=== PATIENT | female | born 1925 | race Caucasian/White ===

== ENCOUNTER 2016-11-06 12:10 | Observation (INO) | payer MEDICARE, BC ==
--- NOTE | 2016-11-06 14:50 | ED ---
SOB HPI - General Source: patient, family Mode of arrival: wheelchair Limitations: no limitations <Eran Larkin - Last Filed: 11/06/16 17:14> <Sherman Otto - Last Filed: 11/06/16 17:57> - General Chief Complaint: Shortness of Breath Stated Complaint: fluid in lungs--sent by dr Mcclure Time Seen by Provider: 11/06/16 14:16 - History of Present Illness Initial Comments: 89-year-old female patient presented emergency department today for complaints of left sided rib pain. Patient was diagnosed with pneumonia and given a prescription for Cefdinir about 10 days ago. Patient was not improving so she returned to her primary care physician today where she had a repeat chest x- ray. Patient's daughter states that the chest x-ray showed worsening of the pneumonia and some fluid on her lungs. Patient states that this left-sided rib pain started about a week ago, has been worsening, states any movement, deep breathing, or coughing exacerbates the pain. Patient denies any fever or chills. Patient states she does become short of breath, and sweaty when she walks through the house. Patient denies any swelling, chest pain, dizziness, abdominal pain, nausea, vomiting, has patient, diarrhea, hematuria, dysuria, urinary urgency, urinary frequency. Patient states that she has somewhat weak. Patient states she has had small amounts of yellow sputum production. (Eran Larkin) - Related Data Home Medications Medication Instructions Recorded Confirmed Amiodarone [Cordarone] 200 mg PO DAILY 11/06/16 11/06/16 Cefdinir 300 mg PO BID 11/06/16 11/06/16 Multivits-Min/Iron/FA/Lutein 1 tab PO DAILY 11/06/16 11/06/16 [Centrum Silver Women Tablet] Omeprazole 20 mg PO DAILY 11/06/16 11/06/16 Warfarin [Coumadin] 2.5 mg PO HS 11/06/16 11/06/16 Allergies Allergy/AdvReac Type Severity Reaction Status Date / Time azithromycin AdvReac Unknown Verified 11/06/16 14:08 ciprofloxacin [From Cipro] AdvReac Unknown Verified 11/06/16 12:49 dabigatran etexilate AdvReac Unknown Verified 11/06/16 14:08 [From Pradaxa] levofloxacin [From Levaquin] AdvReac Unknown Verified 11/06/16 14:08 moxifloxacin [From Avelox] AdvReac Unknown Verified 11/06/16 14:08 oxybutynin [From Oxytrol] AdvReac Unknown Verified 11/06/16 14:08 ANTIDEPRESSANTS AdvReac Unknown Uncoded 11/06/16 14:08 Review of Systems ROS Other: All systems not noted in ROS Statement are negative. <Eran Larkin - Last Filed: 11/06/16 17:14> ROS Other: All systems not noted in ROS Statement are negative. <Sherman Otto - Last Filed: 11/06/16 17:57> ROS Statement: Those systems with pertinent positive or pertinent negative responses have been documented in the HPI. Past Medical History Past Medical History: Atrial Fibrillation, GERD/Reflux, Pneumonia History of Any Multi-Drug Resistant Organisms: None Reported Additional Past Surgical History / Comment(s): vein ligation Past Psychological History: No Psychological Hx Reported Smoking Status: Never smoker Past Alcohol Use History: None Reported Past Drug Use History: None Reported <Eran Larkin - Last Filed: 11/06/16 17:14> General Exam Limitations: no limitations General appearance: alert, in no apparent distress Head exam: Present: atraumatic, normocephalic, normal inspection Eye exam: Present: normal appearance, PERRL, EOMI. Absent: scleral icterus, conjunctival injection, periorbital swelling ENT exam: Present: normal exam, mucous membranes moist Neck exam: Present: normal inspection. Absent: tenderness, meningismus, lymphadenopathy Respiratory exam: Present: rales (Bilateral bases), chest wall tenderness (Over the left anterior ribs). Absent: normal lung sounds bilaterally, respiratory distress, wheezes, rhonchi, stridor Cardiovascular Exam: Present: regular rate, normal rhythm, normal heart sounds. Absent: systolic murmur, diastolic murmur, rubs, gallop, clicks GI/Abdominal exam: Present: soft, normal bowel sounds. Absent: distended, tenderness, guarding, rebound, rigid Extremities exam: Present: normal inspection, full ROM, normal capillary refill. Absent: tenderness, pedal edema, joint swelling, calf tenderness Back exam: Present: normal inspection Neurological exam: Present: alert, oriented X3, CN II-XII intact Psychiatric exam: Present: normal affect, normal mood Skin exam: Present: warm, dry, intact, normal color. Absent: rash <Eran Larkin - Last Filed: 11/06/16 17:14> General appearance: alert, in no apparent distress Head exam: Present: atraumatic, normocephalic, normal inspection Eye exam: Present: normal appearance, PERRL, EOMI. Absent: scleral icterus, conjunctival injection, periorbital swelling ENT exam: Present: normal exam, mucous membranes moist Neck exam: Present: normal inspection. Absent: tenderness, meningismus, lymphadenopathy Respiratory exam: Present: normal lung sounds bilaterally, wheezes. Absent: respiratory distress, rales, rhonchi, stridor Cardiovascular Exam: Present: regular rate, normal rhythm, normal heart sounds. Absent: systolic murmur, diastolic murmur, rubs, gallop, clicks GI/Abdominal exam: Present: soft, normal bowel sounds. Absent: distended, tenderness, guarding, rebound, rigid Extremities exam: Present: normal inspection, full ROM, normal capillary refill. Absent: tenderness, pedal edema, joint swelling, calf tenderness Back exam: Present: normal inspection Neurological exam: Present: alert, oriented X3, CN II-XII intact Psychiatric exam: Present: normal affect, normal mood Skin exam: Present: warm, dry, intact, normal color. Absent: rash <Sherman Otto - Last Filed: 11/06/16 17:57> Course <Eran Larkin - Last Filed: 11/06/16 17:14> <Shermna Otto - Last Filed: 11/06/16 17:57> Vital Signs 11/06/16 11/06/16 11/06/16 12:42 14:42 15:17 Temperature 98.2 F Pulse Rate 59 L 60 Respiratory 16 16 18 Rate Blood Pressure 164/75 183/81 O2 Sat by Pulse 95 97 Oximetry 11/06/16 17:51 Temperature Pulse Rate 59 L Respiratory 18 Rate Blood Pressure 193/83 O2 Sat by Pulse 97 Oximetry - Reevaluation(s) Reevaluation #1: 11/06/16 17:57 Patient showing no improvement with breathing treatment (Sherman Otto) Medical Decision Making - Lab Data Result diagrams: 11/06/16 14:05 11/06/16 14:05 - Radiology Data Radiology results: report reviewed <Eran Larkin - Last Filed: 11/06/16 17:14> - Lab Data Result diagrams: 11/06/16 14:05 11/06/16 14:05 <Sherman Otto - Last Filed: 11/06/16 17:57> - Medical Decision Making 89-year-old female patient presents to emergency department today for complaints of shortness of breath and continued cough despite a 10 day course of cefdinir given to her by her primary care physician. Chest x-ray showed no acute pneumonia, but did reveal some atelectasis versus scarring in the bases. CTA of the chest revealed no pulmonary embolism, but did show some apical scarring as well as some atelectasis at the lung bases. Patient will be admitted for exacerbation of COPD. She will be placed on IV steroids, as well as given breathing treatments every 6 hours. Patient also having some left sided rib/chest wall pain. Discussed splinting and incentive spirometry use with the patient. Case discussed with Cassius Thompson (Eran Larkin) 89 to the ER for evaluation of shortness of breath, positive COPD exacerbation. Patient, patient will be admitted for IV Steroids and breathing tx around the clock (Sherman Otto) - Lab Data Lab Results 11/06/16 11/06/16 11/06/16 Range/Units 14:05 14:05 14:05 WBC 8.7 (3.8-10.6) k/uL RBC 4.54 (3.80-5.40) m/uL Hgb 13.4 (11.4-16.0) gm/dL Hct 40.9 (34.0-46.0) % MCV 90.1 (80.0-100.0) fL MCH 29.5 (25.0-35.0) pg MCHC 32.7 (31.0-37.0) g/dL RDW 13.8 (11.5-15.5) % Plt Count 178 (150-450) k/uL Neutrophils % 78 % Lymphocytes % 16 % Monocytes % 4 % Eosinophils % 1 % Basophils % 0 % Neutrophils # 6.8 (1.3-7.7) k/uL Lymphocytes # 1.3 (1.0-4.8) k/uL Monocytes # 0.4 (0-1.0) k/uL Eosinophils # 0.0 (0-0.7) k/uL Basophils # 0.0 (0-0.2) k/uL PT (9.0-12.0) sec INR (<1.1) APTT (22.0-30.0) sec Sodium 141 (137-145) mmol/L Potassium 4.4 (3.5-5.1) mmol/L Chloride 106 (98-107) mmol/L Carbon Dioxide 25 (22-30) mmol/L Anion Gap 10 mmol/L BUN 17 (7-17) mg/dL Creatinine 0.81 (0.52-1.04) mg/dL Est GFR (MDRD) Af Amer >60 (>60 ml/min/1.73 sqM) Est GFR (MDRD) Non-Af >60 (>60 ml/min/1.73 sqM) Glucose 89 (74-99) mg/dL Calcium 8.9 (8.4-10.2) mg/dL Total Bilirubin 0.8 (0.2-1.3) mg/dL AST 44 H (14-36) U/L ALT 84 H (9-52) U/L Alkaline Phosphatase 84 (38-126) U/L Total Creatine Kinase 50 (30-135) U/L CK-MB (CK-2) 1.0 (0.0-2.4) ng/mL CK-MB (CK-2) Rel Index 2.0 Troponin I <0.012 (0.000-0.034) ng/mL NT-Pro-B Natriuret Pep pg/mL Total Protein 6.1 L (6.3-8.2) g/dL Albumin 3.3 L (3.5-5.0) g/dL 11/06/16 11/06/16 Range/Units 14:05 14:05 WBC (3.8-10.6) k/uL RBC (3.80-5.40) m/uL Hgb (11.4-16.0) gm/dL Hct (34.0-46.0) % MCV (80.0-100.0) fL MCH (25.0-35.0) pg MCHC (31.0-37.0) g/dL RDW (11.5-15.5) % Plt Count (150-450) k/uL Neutrophils % % Lymphocytes % % Monocytes % % Eosinophils % % Basophils % % Neutrophils # (1.3-7.7) k/uL Lymphocytes # (1.0-4.8) k/uL Monocytes # (0-1.0) k/uL Eosinophils # (0-0.7) k/uL Basophils # (0-0.2) k/uL PT 15.0 H (9.0-12.0) sec INR 1.5 (<1.1) APTT 26.3 (22.0-30.0) sec Sodium (137-145) mmol/L Potassium (3.5-5.1) mmol/L Chloride (98-107) mmol/L Carbon Dioxide (22-30) mmol/L Anion Gap mmol/L BUN (7-17) mg/dL Creatinine (0.52-1.04) mg/dL Est GFR (MDRD) Af Amer (>60 ml/min/1.73 sqM) Est GFR (MDRD) Non-Af (>60 ml/min/1.73 sqM) Glucose (74-99) mg/dL Calcium (8.4-10.2) mg/dL Total Bilirubin (0.2-1.3) mg/dL AST (14-36) U/L ALT (9-52) U/L Alkaline Phosphatase (38-126) U/L Total Creatine Kinase (30-135) U/L CK-MB (CK-2) (0.0-2.4) ng/mL CK-MB (CK-2) Rel Index Troponin I (0.000-0.034) ng/mL NT-Pro-B Natriuret Pep 340 pg/mL Total Protein (6.3-8.2) g/dL Albumin (3.5-5.0) g/dL - Radiology Data Two-view chest x-ray impression by Dr. Butler reveals no acute infiltrate. Linear changes at the right lung base just of scar atelectasis. 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 CTA of the chest shows apical scarring present bilaterally. There is atelectatic changes present at the lung bases. Impression by Dr. Rose reveals a negative pulmonary embolism exam, and mild cardiomegaly, hiatal hernia. (Eran Larkin) Critical Care Time Critical Care Time: Yes Total Critical Care Time: 31 <Sherman Otto - Last Filed: 11/06/16 17:57> Disposition Decision to Admit Reason: Admit from EC Decision Date: 11/06/16 Decision Time: 17:09 <Eran Larkin - Last Filed: 11/06/16 17:14> <Sherman Otto - Last Filed: 11/06/16 17:57> Clinical Impression: COPD exacerbation Disposition: ADMITTED IP TO THIS [facility] Condition: Fair Referrals: Leny Mcclure DO [Primary Care Provider] - 1-2 days
--- NOTE | 2016-11-06 14:52 | XR ---
EXAMINATION TYPE: XR chest 2V DATE OF EXAM: 11/06/2016 2:45 PM COMPARISON: 03/30/2013 TECHNIQUE: PA and lateral views submitted. HISTORY: Difficulty breathing FINDINGS: Hyperinflation suggests COPD. Atherosclerotic change aorta is seen with mild aneurysmal dilation of t he thoracic aorta measuring 3.8 cm. Hypertrophic and degenerative change of the spine. Linear changes at the right lung base most typical of atelectasis. Biapical pleural thickening noted. Diffuse osteopenia and arthropathy shoulders IMPRESSION: 1. No acute infiltrate. Linear changes at the right lung base suggestive of scar or atelectasis. 2. 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
[2016-11-06 14:53] LABS: Basophils % (A) 0 %; CH 28.8; CHCM 32.2; Eosinophils % (A) 1 %; HCT 40.9 % (34.0-46.0); HDW 2.45; HGB 13.4 gm/dL (11.4-16.0); Luc % (Auto) 1; Lymphocytes # (A) 1.3 k/uL (1.0-4.8); Lymphocytes % (A) 16 %; MCH 29.5 pg (25.0-35.0); MCHC 32.7 g/dL (31.0-37.0); MCV 90.1 fL (80.0-100.0); Monocytes # (A) 0.4 k/uL (0-1.0); Monocytes % (A) 4 %; Neutrophils # (A) 6.8 k/uL (1.3-7.7); Neutrophils % (A) 78 %; RBC 4.54 m/uL (3.80-5.40); RDW 13.8 % (11.5-15.5); WBC 8.7 k/uL (3.8-10.6); WBC (Perox) 8.89
[2016-11-06 15:03] LABS: ALT 84 U/L (9-52); AST 44 U/L (14-36); Alkaline Phosphatase 84 U/L (38-126); Anion Gap 10 mmol/L; Blood Urea Nitrogen 17 mg/dL (7-17); Calcium 8.9 mg/dL (8.4-10.2); Carbon Dioxide 25 mmol/L (22-30); Chloride 106 mmol/L (98-107); Glucose 89 mg/dL (74-99); Non-African American GFR(MDRD) >60 (>60 ml/min/1.73 sqM); Potassium 4.4 mmol/L (3.5-5.1); Sodium 141 mmol/L (137-145); Total Bilirubin 0.8 mg/dL (0.2-1.3); Total Protein 6.1 g/dL (6.3-8.2)
[2016-11-06 15:06] LABS: INR 1.5 (<1.1); Partial Thromboplastin Time 26.3 sec (22.0-30.0)
[2016-11-06 15:15] LABS: Creatine Kinase 50 U/L (30-135)
[2016-11-06 15:28] LABS: Troponin I <0.012 ng/mL (0.000-0.034)
[2016-11-06] MEDS ORDERED: RX INFO: IV CONTRAST WAS GIVEN 1 EACH MISC MISCELLANE PRN (15:32)
[2016-11-06] MEDS ORDERED: SODIUM CHLORIDE 0.9% 500 ML IV ONE (15:32)
--- NOTE | 2016-11-06 16:48 | CT ---
EXAMINATION TYPE: CT chest angio for PE DATE OF EXAM: 11/06/2016 4:40 PM COMPARISON: NONE HISTORY: Shortness of breath CT DLP: 301.2 mGycm Automated exposure control for dose reduction was used. CONTRAST: CT Chest for pulmonary embolism performed with with IV Contrast, patient injected with 100 mL of Omni paque 350. FINDINGS: There is apical scarring present bilaterally. There is atelectatic change present at the krzysztof ng bases. There is no significant axillary, internal mammary, mediastinal or hilar adenopathy. There is no evidence of pulmonary embolus. The aorta is normal in caliber. The heart is mildly enlarged. There is a prominent hiatal hernia. The re is no pleural or pericardial fluid. There is moderate atheromatous calcification of the aorta There is hypertrophic spondylosis within the spine IMPRESSION: 1. This examination is negative for pulmonary embolus. 2. Mild cardiomegaly. 3. Hiatal hernia.
[2016-11-06] MEDS ORDERED: KETOROLAC 30 MG/ML 1 ML VIAL IVP STA (16:51)
[2016-11-06] MEDS ORDERED: IPRATROPIUM-ALBUTEROL 3 ML NEB INHALATION STA (16:59)
[2016-11-06] MEDS ORDERED: methylPREDNISolone SOD SUCCI 125 MG/2 ML VIAL IV STA (17:05)
[2016-11-06] MEDS ORDERED: ONDANSETRON 4 MG/2 ML VIAL IVP PRN (17:05)
[2016-11-06] MEDS ORDERED: MORPHINE SULFATE 4 MG/ML SYRINGE IV PRN (17:05)
[2016-11-06] MEDS ORDERED: ACETAMINOPHEN TAB 325 MG TAB PO PRN (17:05)
[2016-11-06] MEDS ORDERED: NALOXONE 0.4 MG/ML 1 ML VIAL IV PRN (17:05)
[2016-11-06] MEDS ORDERED: IPRATROPIUM-ALBUTEROL 3 ML NEB INHALATION PRN (18:05)
[2016-11-06] MEDS: IPRATROPIUM-ALBUTEROL 3 ML NEB INHALATION SCH (18:41)
[2016-11-06] MEDS ORDERED: hydrALAZINE HCL 20 MG/ML 1 ML VIAL IVP STA (18:46)
[2016-11-06] MEDS ORDERED: IPRATROPIUM-ALBUTEROL 3 ML NEB INHALATION SCH (20:00)
[2016-11-06] MEDS ORDERED: guaiFENesin-DM 100-10MG/5ML 10 ML CUP PO PRN (20:45)
[2016-11-06] MEDS ORDERED: WARFARIN 2.5 MG TAB PO SCH (21:00)
[2016-11-06 21:06] LABS: Glucose,Whole Blood 132 mg/dL (75-99)
[2016-11-06] MEDS: INSULIN LISPRO (humaLOG) 300 UNIT/3 ML VIAL SQ SCH (21:59)
[2016-11-06] MEDS: CEFDINIR 300 MG CAP PO SCH (22:01)
[2016-11-06] MEDS: methylPREDNISolone SOD SUCCI 125 MG/2 ML VIAL IV SCH (23:37)
[2016-11-07 07:24] LABS: Glucose,Whole Blood 154 mg/dL (75-99)
[2016-11-07] MEDS: IPRATROPIUM-ALBUTEROL 3 ML NEB INHALATION SCH ×4 (07:26→20:55)
[2016-11-07 07:33] VITALS: RESP 16
[2016-11-07] MEDS: PANTOPRAZOLE 40 MG TABLET PO SCH (08:00)
[2016-11-07] MEDS: CEFDINIR 300 MG CAP PO SCH (08:00)
[2016-11-07] MEDS: methylPREDNISolone SOD SUCCI 125 MG/2 ML VIAL IV SCH (08:00)
[2016-11-07] MEDS: AMIODARONE 200 MG TAB PO SCH (08:01)
[2016-11-07] MEDS: INSULIN LISPRO (humaLOG) 300 UNIT/3 ML VIAL SQ SCH ×3 (08:03→18:51)
[2016-11-07 08:22] LABS: Basophils # (A) 0.1 k/uL (0-0.2); Basophils % (A) 1 %; CH 28.8; CHCM 32.1; Eosinophils % (A) 0 %; HCT 42.5 % (34.0-46.0); HDW 2.41; HGB 13.6 gm/dL (11.4-16.0); Luc # (Auto) 0.03; Luc % (Auto) 0; Lymphocytes # (A) 0.5 k/uL (1.0-4.8); Lymphocytes % (A) 6 %; MCH 28.9 pg (25.0-35.0); MCV 90.4 fL (80.0-100.0); Mean Platelet Volume 7.7; Monocytes # (A) 0.1 k/uL (0-1.0); Monocytes % (A) 1 %; Neutrophils # (A) 6.9 k/uL (1.3-7.7); Neutrophils % (A) 91 %; RDW 13.8 % (11.5-15.5); WBC 7.5 k/uL (3.8-10.6); WBC (Perox) 8.34
[2016-11-07 08:25] LABS: INR 1.6 (<1.1); Prothrombin Time 15.2 sec (9.0-12.0)
[2016-11-07 08:30] LABS: Anion Gap 12 mmol/L; Blood Urea Nitrogen 20 mg/dL (7-17); Carbon Dioxide 23 mmol/L (22-30); Chloride 107 mmol/L (98-107); Glucose 159 mg/dL (74-99); Non-African American GFR(MDRD) >60 (>60 ml/min/1.73 sqM); Potassium 4.4 mmol/L (3.5-5.1); Sodium 142 mmol/L (137-145)
[2016-11-07] MEDS ORDERED: Potassium Replacement Protocol 1 EACH MISC MISCELLANE PRN (11:20)
[2016-11-07 11:29] LABS: Glucose,Whole Blood 149 mg/dL (75-99)
[2016-11-07] MEDS ORDERED: POTASSIUM CHLORIDE 10 MEQ, LIDOCAINE 2% INJ 10 MG in SODIUM CHLORIDE 0.9% 100 ML IVPB SCH (12:00)
[2016-11-07] MEDS ORDERED: MULTIVITAMINS, THERA 1 EACH TAB PO SCH (12:00)
[2016-11-07 16:43] LABS: Glucose,Whole Blood 136 mg/dL (75-99)
--- NOTE | 2016-11-07 19:09 | HP ---
DATE OF ADMISSION: Patient is an 89-year-old female who came in with left-sided ribcage pain apparently from her coughing and patient was recently diagnosed with pneumonia, was treated for 10 days with antibiotics. Patient does not have any pneumonia at this point of time. Patient is admitted for shortness of breath. Patient apparently was wheezing yesterday. When I examined patient does not have any wheezing. Patient has fairly good air entry into bilateral lung [place]. I am switching her oral prednisone and inhalational treatments. Patient apparently cannot take care of herself at home. Patient states she is quite weak. Because of which I am obtaining PT and OT consultation. Patient denied any fever or chills. Patient denied any nausea or vomiting. Patient denied any abdominal pain. CT of the angio of the chest is negative for pulmonary embolism. Patient never had any pulmonary function testing. Never smoker. REVIEW OF SYSTEMS: CONSTITUTIONAL: No fever, no malaise, no fatigue. HEENT: No recent visual problems or hearing problems. Denied any sore throat. CARDIOVASCULAR: No chest pain, orthopnea, PND, no palpitations, no syncope. PULMONARY: As described HPI. GASTROINTESTINAL: No diarrhea, no nausea, no vomiting, no abdominal pain. Normoactive bowel sounds. NEUROLOGICAL: No headaches, no weakness, no numbness. HEMATOLOGICAL: Denies any bleeding or petechiae. GENITOURINARY: Denies any burning micturition, frequency, or urgency. MUSCULOSKELETAL/RHEUMATOLOGICAL: Denies any joint pain, swelling, or any muscle pain. ENDOCRINE: Denies any polyuria or polydipsia. The rest of the 14 point review of systems is negative. Patient's home medications: Amiodarone, cefdinir, multivitamin, omeprazole, Coumadin 2.5 mg p.o. bedtime. Patient has subtherapeutic INR, about 1.6 INR because of which I am increasing Coumadin to 3.5 mg. Patient has atrial fibrillation history for which patient is on Coumadin. ALLERGIES: ALLERGIC TO AZITHROMYCIN, CIPROFLOXACIN, ( ), LEVOFLOXACIN, MOXIFLOXACIN, OXYBUTYNIN, ANTIDEPRESSANT. PAST MEDICAL HISTORY: Atrial fibrillation, gastroesophageal reflux disease, recent pneumonia. SOCIAL HISTORY: Denied any smoking, alcohol abuse or any drug abuse. The patient does not have any history of COPD. FAMILY HISTORY: Not available at this point of time and irrelevant at this age. PHYSICAL EXAMINATION: VITAL SIGNS: Temperature 97.9, pulse ox 63, respiratory rate of 16, blood pressure is 173/79, saturating at 95% on 2-L of O2 nasal cannula. GENERAL: The patient is alert and oriented x3, not in any acute distress. Well developed, well nourished. HEENT: Pupils are round and equally reacting to light. EOMI. No scleral icterus. No conjunctival pallor. Normocephalic, atraumatic. No pharyngeal erythema. No thyromegaly. CARDIOVASCULAR: S1 and S2 present. No murmurs, rubs, or gallops. PULMONARY: Chest is clear to auscultation, no wheezing or crackles. ABDOMEN: Soft, nontender, nondistended, normoactive bowel sounds. No palpable organomegaly. MUSCULOSKELETAL: No joint swelling or deformity. EXTREMITIES: No cyanosis, clubbing, or pedal edema. NEUROLOGICAL: Gross neurological examination did not reveal any focal deficits. SKIN: No rashes. LABORATORY DATA: CBC, CMP essentially within normal limits. INR is 1.6. ASSESSMENT AND PLAN: 1. Shortness of breath may be related to undiagnosed chronic obstructive pulmonary disease. Patient is negative for pulmonary embolism. I do not believe patient has congestive heart failure. Patient at this point of time will not require any more antibiotics; completed 10 day course of antibiotics. Steroids will be switched to oral. 2. Gastroesophageal reflux disease. 3. Atrial fibrillation, rate controlled at this point of time. Continue with amiodarone and anticoagulation. Coumadin dosing as mentioned above. 4. Generalized deconditioning PT and OT evaluation. Depending on PT, OT evaluation patient will be discharge either tomorrow or day after. If she requires rehab, the patient will be discharged on Wednesday to [facility].
[2016-11-07] MEDS: DOXYCYCLINE 50 MG CAP PO SCH (20:41)
[2016-11-07] MEDS ORDERED: WARFARIN 3 MG TAB PO SCH ×2 (21:00)
[2016-11-07] MEDS ORDERED: WARFARIN 0.5 MG TAB PO SCH (21:00)
[2016-11-08 07:34] VITALS: BP 148/70; TEMP 96.7
[2016-11-08] MEDS: IPRATROPIUM-ALBUTEROL 3 ML NEB INHALATION SCH ×2 (07:38→11:24)
[2016-11-08] MEDS: DOXYCYCLINE 50 MG CAP PO SCH (07:56)
[2016-11-08] MEDS: AMIODARONE 200 MG TAB PO SCH (07:56)
[2016-11-08] MEDS: PANTOPRAZOLE 40 MG TABLET PO SCH (07:56)
[2016-11-08] MEDS ORDERED: predniSONE 20 MG TAB PO SCH (09:00)
[2016-11-08 11:26] VITALS: PULSE 68
--- NOTE | 2016-11-08 21:16 | DS ---
DATE OF ADMISSION: 11/06/2016 DATE OF DISCHARGE: 11/08/2016 Patient is an 89-year-old admitted with possibility of pneumonia although patient there is no evidence of pneumonia on the CT angio of the chest, no pulmonary embolism. Patient's chest pain on the left side which increases with deep breathing improved and this appears to be musculoskeletal in nature and patient is otherwise clinically doing well and is being discharged today on Doxycycline for bronchitis and patient is also being discharged on systemic steroids as the patient was wheezing apparently when she came in, although I did not appreciate any wheezing by the time I evaluated the patient. Patient may or may not have COPD or asthma. Patient will need an outpatient pulmonary function testing and patient's INR is low at 1.6. The Coumadin dose will be increased to 3 mg and patient will need to get a repeat INR in 3 days. The Coumadin does interact with prednisone I am discharging her home on. Patient has been examined on the day of discharge. Vitals are stable. PHYSICAL EXAMINATION: GENERAL: The patient is alert and oriented x3, not in any acute distress. Well developed, well nourished. HEENT: Pupils are round and equally reacting to light. EOMI. No scleral icterus. No conjunctival pallor. Normocephalic, atraumatic. No pharyngeal erythema. No thyromegaly. CARDIOVASCULAR: S1 and S2 present. No murmurs, rubs, or gallops. PULMONARY: Chest is clear to auscultation, no wheezing or crackles. ABDOMEN: Soft, nontender, nondistended, normoactive bowel sounds. No palpable organomegaly. MUSCULOSKELETAL: No joint swelling or deformity. EXTREMITIES: No cyanosis, clubbing, or pedal edema. NEUROLOGICAL: Gross neurological examination did not reveal any focal deficits. SKIN: No rashes. Patient does not have any subacute rehab needs but will need home care and home physical therapy. FINAL DIAGNOSES: 1. Shortness of breath, probably related to ( )chronic obstructive pulmonary disease, will need outpatient sleep study. Patient will be discharged on doxycycline for bronchitis and systemic steroids. 2. Gastroesophageal reflux disease. 3. Atrial fibrillation, rate controlled at this point of time. Anticoagulation recommendations as mentioned above. 4. Generalized deconditioning. Will require home physical therapy. Spent greater than 35 minutes on discharge. DISCHARGE DIET: Cardiac diet. Activity as tolerated. The patient has a lot of stressors at home including that her is being made hospice. Patient's primary care physician is Dr. Leny Colvin.
== END 2016-11-08 13:48 | disposition home health service (06) ==
LOC: EC 12:10 → 4MS4W 17:55
PROVIDERS: ADMIT Hospitalist; ATTEND Hospitalist
DX: J40 Bronchitis, not specified as acute or chronic (principal); R06.02 Shortness of breath; K21.9 Gastro-esophageal reflux disease without esophagitis; I48.91 Unspecified atrial fibrillation; Z79.899 Other long term (current) drug therapy; Z88.8 Allergy status to other drugs, medicaments and biological substances
CPT/HCPCS: 99291 ×2; 96374 ×2; 96375 ×3; 96361 ×2; 36415; 94640 ×3; 94760 ×2; 93005; 97162; 83880; 80053; 80048; 82550; 82553; 84484; 85025 ×2; 85610 ×2; 85730; 87040; 71020; 71275; G0378 ×3; J0360; J2930 ×2; Q9967; J1885; J7512; 96376

== ENCOUNTER → 2017-04-13 | Outpatient (CLI) | payer MEDICARE, BC ==
[2017-04-13 08:55] LABS: INR 1.1 (<1.2); Prothrombin Time 10.9 sec (9.0-12.0)
== END | disposition home or self-care (01) ==
LOC: LABWHC1 08:30
PROVIDERS: ATTEND Dentist Oral and Maxillofacial Surgery
DX: D68.9 Coagulation defect, unspecified (principal)
CPT/HCPCS: 36415; 85610

== ENCOUNTER → 2017-04-16 | Outpatient (CLI) | payer MEDICARE, BC ==
[2017-04-16 08:44] LABS: INR 1.1 (<1.2); Prothrombin Time 11.1 sec (9.0-12.0)
== END | disposition home or self-care (01) ==
LOC: LABWHC1 08:16
PROVIDERS: ATTEND Dentist Oral and Maxillofacial Surgery
DX: D68.9 Coagulation defect, unspecified (principal)
CPT/HCPCS: 36415; 85610